=== PATIENT | male | born 1935 | race Caucasian/White ===

== ENCOUNTER 2019-01-30 15:04 | Emergency (ER) | payer MEDICARE ==
[~2019-01-30] VITALS: Ht 182.9 cm; Wt 93.2 kg
[~2019-01-30 15:04] MED LIST: ARICEPT10 MG PO; AUGMENTIN 500-11 TA1 PO; BAYER CHEWABLE81 MG PO; BETAPACE 80 MG80 MG PO; BETAPACE160 MG PO; HYDROCODONE-APA1 TAB PO; ISOSORBIDE MONO30 M1 PO; LEVAQUIN500 MG PO; LISINOPRIL5 MG PO; NORVASC5 MG PO; PLAVIX75 MG PO; PRILOSEC20 MG PO; PRINIVIL20 MG PO; VITAMIN B-12100 MCG PO; ZOCOR20 MG PO
[2019-01-30 15:07] VITALS: Ht 182.9 cm; Wt 93.2 kg
[2019-01-30] MEDS ORDERED: BETAPACE160 MG PO (15:10)
[2019-01-30] MEDS ORDERED: LIPITOR40 MG PO (15:11)
[2019-01-30] MEDS ORDERED: DONEPEZIL HCL10 MG PO (15:11)
[2019-01-30] MEDS ORDERED: LISINOPRIL20 MG PO (15:12)
[2019-01-30] MEDS ORDERED: ELIQUIS2.5 MG PO (15:12)
[2019-01-30] MEDS ORDERED: DILTIAZEM 24HR240 M4 PO (15:12)
[2019-01-30] MEDS ORDERED: ZOLOFT50 MG PO (15:13)
[2019-01-30] MEDS ORDERED: PROTONIX40 MG PO (15:20)
[2019-01-30] MEDS ORDERED: XARELTO15 MG PO ×2 (15:20)
[2019-01-30] MEDS ORDERED: CLARITIN 10 MG10 MG PO (15:21)
[2019-01-30] MEDS ORDERED: TRAZODONE HCL150 MG PO (15:21)
[2019-01-30 22:11] LABS: BASOPHILS 0.1 % (0-2); EOSINOPHILS 4.2 % (0-7); HEMATOCRIT 42.1 % (42.0-54.0); IMMATURE GRANULOCYTES 0.4 % (0-5); LYMPHOCYTES 25.6 % (15-50); MCH 29.4 pg (26.0-34.0); MCHC 33.3 g/dL (31.0-37.0); MCV 88.3 fL (80.0-100.0); MEAN PLATELET VOLUME 8.8 fL (7.4-10.4); MONOCYTES 11.5 % (2-11); NEUTROPHILS 58.2 % (40-80); RBC 4.77 10x6/uL (4.20-6.10); RDW 14.7 % (11.5-14.5); WBC 7.6 10x3/uL (4.8-10.8)
[2019-01-30 22:20] LABS: APTT 33.2 SECONDS (22.8-39.4); INR 1.95 (0.85-1.17); PROTIME 21.6 SECONDS (11.6-15.0)
[2019-01-30 22:25] LABS: ALBUMIN 3.5 g/dL (3.4-5.0); ANION GAP 13.2 mmol/L (8-16); BILIRUBIN - TOTAL 0.43 mg/dL (0.2-1.3); CALCIUM 8.6 mg/dL (8.5-10.1); CARBON DIOXIDE 26.6 mmol/L (21.0-32.0); CREATININE - SERUM 1.4 mg/dL (0.6-1.3); POTASSIUM - SERUM 4.8 mmol/L (3.5-5.1); PROTEIN - SERUM 7.3 g/dL (6.4-8.2)
[2019-01-30 22:26] LABS: PLATELET COUNT 192 10x3/uL (130-400)
[2019-01-30 23:29] VITALS: BP 174/90
== END 2019-01-30 23:29 | disposition other institution (70) ==
LOC: D.ER 15:04
PROVIDERS: Family Medicine
DX: K14.8 Other diseases of tongue (principal)

== ENCOUNTER 2019-01-31 05:22 | Emergency (ER) | payer MEDICARE ==
[~2019-01-31] VITALS: Ht 182.9 cm; Wt 90.9 kg
[~2019-01-31 05:22] MED LIST changes: +CLARITIN 10 MG10 MG PO; +DILTIAZEM 24HR240 M4 PO; +DONEPEZIL HCL10 MG PO; +ELIQUIS2.5 MG PO; +LIPITOR40 MG PO; +LISINOPRIL20 MG PO; +PROTONIX40 MG PO; +TRAZODONE HCL150 MG PO; +XARELTO15 MG PO; +ZOLOFT50 MG PO
[2019-01-31 05:31] VITALS: Ht 182.9 cm; Wt 90.9 kg
[2019-01-31 07:06] VITALS: BP 149/80
== END 2019-01-31 07:05 | disposition home or self-care (01) ==
LOC: D.ER 05:22
DX: S01.512A Laceration without foreign body of oral cavity, initial encounter (principal); X58.XXXA Exposure to other specified factors, initial encounter; Y93.89 Activity, other specified; Y92.89 Other specified places as the place of occurrence of the external cause; Z79.01 Long term (current) use of anticoagulants